=== PATIENT | female | born 1930 | race Caucasian/White ===

== ENCOUNTER → 2016-11-14 | Outpatient (CLI) | payer MEDICARE, BC ==
[~2016-11-14] MED LIST: ADVAIR DIS1 PUFF/DOS IH; ARMOUR THYROID30 M1 PO; ASA CHILDREN'S81 MG PO; ELIQUIS5 MG PO; LASIX DPS40 MG PO; MOEXIPRIL HCL15 MG PO; MULTIPLE VITAM1 EACH PO; PRAVACHOL40 MG PO; PRESERVISION A1 EAC2 PO; PRILOSEC DPS20 MG PO; PROVENTIL HFA6.7 GM IH; REFRESH TEARS15 ML OU; TENORMIN-DPS25 MG PO; TYLENOL #3 DPS1 TAB PO; TYLENOL DPS325 MG PO
== END | disposition home or self-care (01) ==
LOC: RAD.S 12:52
DX: Z12.31 Encounter for screening mammogram for malignant neoplasm of breast (principal); Z13.820 Encounter for screening for osteoporosis; N28.1 Cyst of kidney, acquired; M85.89 Other specified disorders of bone density and structure, multiple sites